=== PATIENT | male | born 1955 | race Caucasian/White ===

== ENCOUNTER 2018-11-09 10:21 | Emergency (ER) | payer SELFPAY ==
[2018-11-09] MEDS ORDERED: Bupivacaine 0.5% 10 ML VIAL ONE (10:28)
[2018-11-09] MEDS ORDERED: Cephalexin 500 MG CAP ONE (11:26)
[2018-11-09] MEDS ORDERED: Adacel (T-DAP) 0.5 ML SYRINGE ONE (11:26)
[2018-11-09] MEDS ORDERED: Bacitracin Zinc 1 Packet ONE (11:41)
--- NOTE | 2018-11-09 16:52 | RAD ---
LEFT RING FINGER THREE VIEWS: Date: 11-09-18 FINDINGS: There is amputation of the tip of the fourth finger. A fracture is seen through the terminal tuft of the distal phalanx but does not involve any joint. IMPRESSION: Amputation of tip of finger with minimal tuft fracture. POS: HOME
== END 2018-11-09 11:56 | disposition home or self-care (01) ==
LOC: BURERS 10:21
DX: S68.125A Partial traumatic metacarpophalangeal amputation of left ring finger, initial encounter (principal); F17.210 Nicotine dependence, cigarettes, uncomplicated; W29.8XXA Contact with other powered hand tools and household machinery, initial encounter
CPT/HCPCS: 12001; 90471; 90715; J3490